=== PATIENT | female | born 1960 | race Hispanic/Latino ===

== ENCOUNTER 2017-12-13 19:34 | Emergency (ER) | payer MEDICAID, OTHER ==
[2017-12-13 19:48] VITALS: RESP 20; TEMP 98.2; O2SAT 100
--- NOTE | 2017-12-13 21:03 | ED PDOC ---
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 Patient stated tripped and fell down on the ground. Patient stated she tripped on pot hole in parking lot. Denies head injury, syncope, dizziness, back wei, or neck pain. ( Greg Humphrey) Past Medical History - Provider Review Nursing Documentation Reviewed: Yes - Infectious Disease Hx of Infectious Diseases: None - Cardiac Hx Cardiac Disorders: No - Pulmonary Hx Respiratory Disorders: No - Neurological Hx Neurological Disorder: No - HEENT Hx HEENT Disorder: No - Renal Hx Renal Disorder: No - Endocrine/Metabolic Hx Endocrine Disorders: No - Hematological/Oncological Hx Blood Disorders: No - Integumentary Hx Dermatological Disorder: No - Musculoskeletal/Rheumatological Hx Musculoskeletal Disorders: No - Gastrointestinal Hx Gastrointestinal Disorders: No - Genitourinary/Gynecological Hx Genitourinary Disorders: No - Psychiatric Hx Psychophysiologic Disorder: No Hx Substance Use: No <Greg Humphrey - Last Filed: 12/13/17 21:12> Family/Social History - Physician Review Nursing Documentation Reviewed: Yes Family/Social History: Other (noncontributory) Smoking Status: Heavy Smoker > 10 Cigarettes Daily Hx Alcohol Use: Yes Frequency of alcohol use: Socially Hx Substance Use: No <Greg Humphrey - Last Filed: 12/13/17 21:12> Allergies/Home Meds <Greg Humphrey - Last Filed: 12/13/17 21:12> <Martir Conley - Last Filed: 12/13/17 23:12> Allergies/Adverse Reactions: Allergies Iodinated Contrast- Oral and IV Dye Allergy (Verified 12/13/17 19:37) ANAPHYLAXIS iodine Allergy (Verified 12/13/17 19:37) ANAPHYLAXIS vancomycin Allergy (Verified 12/13/17 19:37) ANAPHYLAXIS Review of Systems - Review of Systems Constitutional: Normal. absent: Fatigue, Weight Change, Fevers Eyes: Normal ENT: Normal Respiratory: Normal Cardiovascular: Normal Gastrointestinal: Normal Genitourinary Female: Normal Musculoskeletal: Other (left anterior knee pain that radiates to left hip) Skin: Normal Neurological: Normal Endocrine: Normal Hemo/Lymphatic: Normal Psychiatric: Normal <Humphrey,Nahim P - Last Filed: 12/13/17 21:12> Physical Exam Temperature: Afebrile Blood Pressure: Normal Pulse: Regular Respiratory Rate: Normal Appearance: Positive for: Well-Appearing, Non-Toxic, Comfortable Pain Distress: None Mental Status: Positive for: Alert and Oriented X 3 - Systems Exam Head: Present: Atraumatic, Normocephalic, Other (no raccoon sign. no dias sign) Pupils: Present: PERRL, Other (no hyphema) Extroacular Muscles: Present: EOMI. No: Entrapment Conjunctiva: Present: Normal Ears: Present: Normal, Other (no hemotympanum) Mouth: Present: Moist Mucous Membranes Neck: Present: Normal Range of Motion. No: Meningeal Signs Respiratory/Chest: Present: Clear to Auscultation, Good Air Exchange. No: Respiratory Distress, Accessory Muscle Use Cardiovascular: Present: Regular Rate and Rhythm, Normal S1, S2. No: Murmurs Abdomen: No: Tenderness, Distention, Peritoneal Signs Back: Present: Normal Inspection. No: CVA Tenderness, Midline Tenderness, Paraspinal Tenderness Upper Extremity: Present: Normal Inspection, Normal ROM, NORMAL PULSES, Neurovascularly Intact, Capillary Refill < 2s. No: Cyanosis, Edema Lower Extremity: Present: Normal Inspection, Normal ROM, Swelling, Neurovascularly Intact, Capillary Refill < 2 s, Other (Mild tenderness over left patella area. (+) small superficial abrasion anterior left knee). No: Edema Neurological: Present: GCS=15, CN II-XII Intact, Speech Normal Skin: Present: Warm, Dry, Normal Color. No: Rashes Psychiatric: Present: Alert, Oriented x 3, Normal Insight, Normal Concentration <Humphrey,Nahim P - Last Filed: 12/13/17 21:12> Vital Signs Temp Pulse Resp BP Pulse Ox 12/13/17 19:41 98.2 F 100 H 20 146/84 100 Medical Decision Making Re-evaluation Time: 21:05 Reassessment Condition: Re-examined, Improved <Greg Humphrey - Last Filed: 12/13/17 21:12> <Martir Conley - Last Filed: 12/13/17 23:12> ED Course and Treatment: 12/13/17 21:05 Re-evaluation. Patient feels better. Discussed results and plan with patient who expresses understanding. All questions answered and there is agreement with the plan to discharge home with instructions. Patient stable for discharge. Return if symptoms persist or worsen (Greg Humphrey) - RAD Interpretation Narrative RAD Interpretations (Text): 12/13/17 21:05 Knee x-rays: No fx Hip X-rays: No Fx. (Greg Humphrey) Radiology Orders: 12/13/17 19:39 KNEE WITH PATELLA LEFT 3 VIEW [RAD] Stat 12/13/17 19:41 Hip Left [HIP MIN 2V W/ PELVIS LT] [RAD] Stat - Medication Orders Current Medication Orders: Discontinued Medications Ketorolac Tromethamine (Toradol) 15 mg IM STAT STA Stop: 12/13/17 21:05 Last Admin: 12/13/17 21:35 Dose: 15 mg MAR Pain Assessment Document 12/13/17 21:35 OCS (Rec: 12/13/17 21:36 OCS [id number]) Pain Reassessment Is this a pain reassessment? Yes Sleep Is patient sleeping during reassessment? No Presence of Pain Presence of Pain Yes Location Left, Right or Bilateral Left Pain Location Body Site Hip Knee Frias Leg Description Description Constant Intensity of Pain at present 8 Aggravating Factors ADL's IM Administration Charges Document 12/13/17 21:35 OCS (Rec: 12/13/17 21:36 OCS [id number]) Injection Site MAR Injection Site Right Deltoid Charges for Administration # of IM Administrations 1 Tetanus/Reduced Diphtheria/Acell Pertussis (Boostrix Vaccine Inj) 0.5 ml IM .ONCE ONE Stop: 12/13/17 21:13 Last Admin: 12/13/17 21:35 Dose: 0.5 ml MAR Immunization Data Document 12/13/17 21:35 OCS (Rec: 12/13/17 21:35 OCS [id number]) Immunization Data Vaccine Information Sheet Given Yes Vaccine Information Sheet Given Date 12/13/17 Immunization Registry Document 12/13/17 21:35 OCS (Rec: 12/13/17 21:35 OCS [id number]) Immunization Registry Consent Date 12/13/17 - PA / COMMUNICATION CENTER COORDINATOR / Resident Statement / has reviewed & agrees with the documentation as recorded. <Martir Conley - Last Filed: 12/13/17 23:12> Disposition/Present on Arrival - Present on Arrival Any Indicators Present on Arrival: No History of DVT/PE: No History of Uncontrolled Diabetes: No Urinary Catheter: No History of Decub. Ulcer: No History Surgical Site Infection Following: None - Disposition Have Diagnosis and Disposition been Completed?: Yes Disposition Time: 21:06 Patient Plan: Discharge <Greg Humphrey - Last Filed: 12/13/17 21:12> <Martir Conley - Last Filed: 12/13/17 23:12> - Disposition Diagnosis: Knee pain, acute, Fall Disposition: HOME/ ROUTINE Patient Problems: Current Active Problems Problem Status Onset Fall Acute Knee pain, acute Acute Condition: GOOD Discharge Instructions (ExitCare): Knee Pain (DC) Additional Instructions: Call private doctor for follow up visit in 1-2 days. Apply ice pack, henri bandage and rest. Remove henri bandage at bedtime. Return to emergency if pain worsen. Prescriptions: Ibuprofen [Motrin] 400 mg PO Q8H PRN #20 tab PRN Reason: Pain, Severe (8-10) Referrals: Pelon Martin JD, MD [Primary Care Provider] - Follow up with primary Forms: [employer] (Persian)
[2017-12-13] MEDS ORDERED: TDAP Vaccine 0.5 mL Syr IM ONE (21:12)
[2017-12-13 23:56] VITALS: BP 135/79; PULSE 84
--- NOTE | 2017-12-14 10:00 | RAD ---
PROCEDURE: Left Knee and patella Radiographs. HISTORY: Pain. COMPARISON: None. FINDINGS: BONES: Normal. No fracture. JOINTS: Normal. No osteoarthritis. JOINT EFFUSION: None. OTHER FINDINGS: None. IMPRESSION: Normal radiographs of the left knee.
--- NOTE | 2017-12-14 10:01 | RAD ---
PROCEDURE: Left Hip and pelvis X-ray Radiographs. HISTORY: pain s/p fall COMPARISON: None. FINDINGS: BONES: Normal. No fracture. JOINTS: Normal. SOFT TISSUES: Normal. OTHER FINDINGS: None. IMPRESSION: Negative study
== END 2017-12-13 21:36 | disposition home or self-care (01) ==
LOC: ED 19:34
DX: M25.562 Pain in left knee (principal); F17.210 Nicotine dependence, cigarettes, uncomplicated; Z23 Encounter for immunization
CPT/HCPCS: 73502; 73562; 90471; 90715; 96372; 99283; J1885

== ENCOUNTER 2018-07-22 21:39 | Emergency (ER) | payer OTHER ==
[2018-07-22 22:04] VITALS: BMI 27.3
[2018-07-22 22:15] VITALS: BP 130/84; RESP 18; TEMP 98.4
--- NOTE | 2018-07-22 23:03 | ED PDOC ---
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 Otherwise: (-) loss of consciousness, (-) nausea, (-) vomiting, (-) severe headache, (-) other injury, (-) neck pain, (-) subjective neurologic deficit, (-) anticoagulants, (- ) nosebleed. <Mikayla Cordero PA-C - Last Filed: 07/22/18 22:59> <Martir Conley - Last Filed: 07/23/18 01:57> - General Chief Complaint: Abnormal Skin Integrity Time Seen by Provider: 07/22/18 21:50 Past Medical History - Infectious Disease Hx of Infectious Diseases: None - Cardiac Hx Cardiac Disorders: No - Pulmonary Hx Respiratory Disorders: No - Neurological Hx Neurological Disorder: No - HEENT Hx HEENT Disorder: No - Renal Hx Renal Disorder: No - Endocrine/Metabolic Hx Endocrine Disorders: No - Hematological/Oncological Hx Blood Disorders: No - Integumentary Hx Dermatological Disorder: No - Musculoskeletal/Rheumatological Hx Musculoskeletal Disorders: No - Gastrointestinal Hx Gastrointestinal Disorders: No - Genitourinary/Gynecological Hx Genitourinary Disorders: No - Psychiatric Hx Psychophysiologic Disorder: No Hx Substance Use: No - Anesthesia Hx Anesthesia: No <Mikayla Cordero PA-C - Last Filed: 07/22/18 22:59> Family/Social History Family/Social History: No Known Family HX Smoking Status: Heavy Smoker > 10 Cigarettes Daily Hx Alcohol Use: Yes Hx Substance Use: No <Mikayla Cordero PA-C - Last Filed: 07/22/18 22:59> Allergies/Home Meds <Mikayla Cordero PA-C - Last Filed: 07/22/18 22:59> <Martir Conley - Last Filed: 07/23/18 01:57> Allergies/Adverse Reactions: Allergies Iodinated Contrast- Oral and IV Dye Allergy (Verified 07/22/18 22:05) ANAPHYLAXIS iodine Allergy (Verified 07/22/18 22:05) ANAPHYLAXIS vancomycin Allergy (Verified 07/22/18 22:05) ANAPHYLAXIS Review of Systems - Review of Systems Constitutional: absent: Fatigue, Fevers Eyes: absent: Vision Changes, Photophobia ENT: absent: Hearing Changes, Sore Throat, Rhinorrhea Respiratory: absent: SOB, Cough Cardiovascular: absent: Chest Pain, Palpitations Gastrointestinal: absent: Nausea, Vomiting Musculoskeletal: absent: Arthralgias, Back Pain, Neck Pain Skin: Laceration. absent: Rash, Pruritis, Skin Lesions Neurological: absent: Headache, Dizziness <Mikayla Cordero PA-C - Last Filed: 07/22/18 22:59> Physical Exam - Physical Exam Narrative Physical Exam (Text): 07/22/18 23:01 GENERAL APPEARANCE: Patient is awake, alert, oriented x 3, in no acute distress. SKIN: Warm, dry; (-) cyanosis, (+) 1 cm superficial laceration to the nasal bridge. HEAD: (-) swelling and tenderness, with no palpable bony defect. EYES: (-) conjunctival pallor, (-) scleral icterus, (-) nystagmus. ENMT: Mucous membranes moist. (-) Chapman's sign. TMs: (-) blood. Nose: (-) tenderness, (-) rhinorrhea, (-) septal hematoma. No oral trauma. Pharynx clear. Airway patent: (-) stridor. Full ROM of mandible without pain. NECK: (-) tenderness, (-) stiffness, (-) lymphadenopathy. CHEST AND RESPIRATORY: (-) chest wall tenderness. Lungs: (-) rales, (-) rhonchi, (-) wheezes; breath sounds equal bilaterally. HEART AND CARDIOVASCULAR: (-) irregularity; (-) murmur, (-) gallop. ABDOMEN AND GI: Soft; (-) tenderness. BACK: (-) tenderness. EXTREMITIES: (-) deformity, (-) tenderness, (-) limitation of motion NEURO AND PSYCH: GCS=15. Mental status as above. Has full memory of episode; surveyor helper: Pupils equal & reactive . EOMI. (-) facial asymmetry. Tongue and uvula midline. Strength 5/5 in all extremities. No gross sensory deficits. DTRs symmetric. Vital Signs Temp Pulse Resp BP Pulse Ox 07/22/18 22:14 98.4 F 95 H 18 130/84 98 <Mikayla Cordero PA-C - Last Filed: 07/22/18 22:59> Vital Signs Temp Pulse Resp BP Pulse Ox 07/22/18 22:14 98.4 F 95 H 18 130/84 98 <Martir Conley - Last Filed: 07/23/18 01:57> Medical Decision Making ED Course and Treatment: 07/22/18 23:00 The wound is nasal bridge. The wound was copiously irrigated with normal saline. The wound was explored for foreign bodies and none were found. The wound The edges were reapproximated using dermabond, clean dressing applied. Bleeding was well controlled and the patient tolerated the procedure well. Advised to follow up with primary care physician in 1-2 days without fail. Return to the emergency room at any time for any new or worsening symptoms. Patient states he fully agrees with and understands discharge instructions. States that he agrees with the plan and disposition. Verbalized and repeated discharge instructions and plan. I have given the patient opportunity to ask any additional questions. <Mikayla Cordero PA-C - Last Filed: 07/22/18 22:59> - PA / ORTHOPEDIC CODER / Resident Statement HALLIE has reviewed & agrees with the documentation as recorded. <Mikayla Cordero PA-C - Last Filed: 07/22/18 22:59> - PA / ORTHOPEDIC CODER / Resident Statement HALLIE has reviewed & agrees with the documentation as recorded. <Martir Conley - Last Filed: 07/23/18 01:57> Disposition/Present on Arrival - Present on Arrival Any Indicators Present on Arrival: No History of DVT/PE: No History of Uncontrolled Diabetes: No Urinary Catheter: No History of Decub. Ulcer: No History Surgical Site Infection Following: None - Disposition Have Diagnosis and Disposition been Completed?: Yes Disposition Time: 23:00 Patient Plan: Discharge <Mikayla Cordero PA-C - Last Filed: 07/22/18 22:59> <Martir Conley - Last Filed: 07/23/18 01:57> - Disposition Diagnosis: Facial laceration, Head injury Disposition: HOME/ ROUTINE Condition: STABLE Discharge Instructions (ExitCare): Laceration Repair With Glue (DC), Minor Head Injury Additional Instructions: Thank you for letting us take care of you today. You were treated for facial laceration, head injury. The emergency medical care you received today was directed at your acute symptoms. It may take several days for your symptoms to resolve. Return to the Emergency Department if your symptoms worsen, do not improve, or if you have any other problems. Please contact your doctor in 2 days for re-evaluation and follow up. Bring any paperwork you were given at discharge with you along with any medications you are taking to your follow up visit. Our treatment cannot replace ongoing medical care by a primary care provider (PCP) outside of the emergency department. Thank you for allowing the [facility] team to be part of your care today. Referrals: Pelon Martin JD, MD [Primary Care Provider] - Follow up with primary Forms: [employer]ia[employer] (Ukrainian), WORK NOTE
[2018-07-23 00:49] VITALS: PULSE 90; O2SAT 99
== END 2018-07-23 00:50 | disposition home or self-care (01) ==
LOC: ED 21:39
DX: S01.21XA Laceration without foreign body of nose, initial encounter (principal); S01.81XA Laceration without foreign body of other part of head, initial encounter; W20.8XXA Other cause of strike by thrown, projected or falling object, initial encounter